=== PATIENT | female | born 1995 | race Asian ===

== ENCOUNTER 2018-08-27 11:57 | Emergency (ER) | payer OTHER ==
[~2018-08-27] VITALS: Ht 160 cm; Wt 63.0 kg
[2018-08-27] MEDS ORDERED: IBUPROFEN 600MG TABLET PO ONE (12:30)
[2018-08-27] MEDS ORDERED: CYCLOBENZAPRINE 10MG TABLET PO SCH (12:30)
[2018-08-27] MEDS ORDERED: FLUORESCEIN SODIUM 1MG/STRIP RIGHTEYE ONE (14:30)
[2018-08-27] MEDS ORDERED: TETRACAINE 0.5% OPHTH DROPS 4ML RIGHTEYE ONE (14:30)
[2018-08-27 15:20] VITALS: BP 98/61
== END 2018-08-27 15:30 | disposition home or self-care (01) ==
LOC: ER 11:57
DX: S13.4XXA Sprain of ligaments of cervical spine, initial encounter (principal); M54.6 Pain in thoracic spine; M54.2 Cervicalgia; R51 Headache; Z88.1 Allergy status to other antibiotic agents; V43.62XA Car passenger injured in collision with other type car in traffic accident, initial encounter; Y93.89 Activity, other specified; Y92.89 Other specified places as the place of occurrence of the external cause; Y99.8 Other external cause status
CPT/HCPCS: 71045; 81025; 99284